=== PATIENT | female | born 1935 | race Caucasian/White ===

== ENCOUNTER → 2019-03-19 | Outpatient (CLI) | payer OTHER ==
[~2019-03-19] MED LIST: ALPRAZOLAM 0.0.25 MG PO; AMITRIPTYLINE H25 M2 PO; ASPIR 8181 M1 PO; CARDIZEM CD240 MG PO; CEFTIN500 MG PO; CELEBREX 200 M200 MG PO; COUMADIN 5 MG TA5 M1 PO; DONNATAL EXTEN1 EACH PO; HYDROCODON-ACE1 EACH; HYDROCODONE-AP1 EAC6 PO; LANOXIN 0.120.125 M1 PO; LEVOXYL112 MCG PO; LIPITOR10 MG PO; LISINOPRIL10 MG PO; METOPROLOL SUCC50 MG PO; NITROFURANTOIN100 MG PO; PLAVIX 75 MG TA75 MG PO; RANITIDINE HCL300 M1 PO; VICODIN 5-5001 EACH PO; WELLBUTRIN XL150 M1 PO; XANAX 0.25 MG0.25 MG PO; ZOLOFT 50 MG TA50 M1 PO; ZYBAN150 MG PO; levothroxine PO
== END ==
LOC: M.MRI 13:17
DX: I67.82 Cerebral ischemia (principal); R47.02 Dysphasia

== ENCOUNTER 2019-11-02 11:41 | Emergency (ER) | payer MEDICARE ==
[~2019-11-02] VITALS: Ht 165.1 cm; Wt 77.1 kg
[2019-11-02] MEDS ORDERED: LISINOPRIL2.5 MG PO (12:04)
[2019-11-02] MEDS ORDERED: DULOXETINE HCL30 MG PO (12:05)
[2019-11-02] MEDS ORDERED: FUROSEMIDE 20 M20 MG PO (12:05)
[2019-11-02] MEDS ORDERED: KLOR-CON M2020 MEQ PO (12:05)
[2019-11-02 12:37] LABS: ABSOLUTE BASOPHILS 0.1 thou/uL (0.0-0.2); ABSOLUTE EOSINOPHILS 0.1 thou/uL (0.0-0.7); ABSOLUTE LYMPHOCYTES 1.1 thou/uL (0.8-5.3); ABSOLUTE MONOCYTES 0.8 thou/uL (0.0-1.2); ABSOLUTE NEUTROPHILS 7.6 thou/uL (1.6-8.1); BASOPHILS 0.6 %; EOSINOPHILS 1.2 %; HEMATOCRIT 38.2 % (37.0-47.0); HEMOGLOBIN 12.9 gm/dL (12.0-15.0); LYMPHOCYTES 11.5 %; MCH 33.4 pg (26.0-34.0); MCHC 33.7 g/dL (28.0-37.0); MONOCYTES 8.6 %; MPV 7.4 fl. (7.2-11.1); NUCLEATED RBCS 0 /100WBC; PLATELET COUNT* 291 thou/uL (150-400); POLYS 78.1 %; RBC 3.86 mil/uL (4.20-5.00); RDW-CV 14.6 % (10.5-14.5); WBC 9.7 thou/uL (4.0-11.0)
[2019-11-02 12:49] LABS: CALCIUM 8.1 mg/dL (8.5-10.1); POTASSIUM 4.2 mmol/L (3.5-5.1)
[2019-11-02 12:56] LABS: INFLUENZA A ANTIGEN Negative (Negative); INFLUENZA B ANTIGEN Negative (Negative)
[2019-11-02 13:01] LABS: ALBUMIN 2.8 g/dL (3.4-5.0); TOTAL BILIRUBIN 0.5 mg/dL (<0.1-1.0); TOTAL PROTEIN 7.3 g/dL (6.4-8.2)
[2019-11-02] MEDS ORDERED: CEFDINIR300 MG PO (13:12)
[2019-11-02] MEDS ORDERED: MEDROLDOSEPACK PO (13:12)
[2019-11-02] MEDS ORDERED: PROMETHAZINE-C473 ML PO (13:24)
[2019-11-02 14:52] VITALS: BP 108/72
== END 2019-11-02 14:54 | disposition home or self-care (01) ==
LOC: M.ERS 11:41
PROVIDERS: Personal Emergency Response Attendant
DX: J18.8 Other pneumonia, unspecified organism (principal); I10 Essential (primary) hypertension; I48.91 Unspecified atrial fibrillation; E03.9 Hypothyroidism, unspecified; Z88.1 Allergy status to other antibiotic agents; Z88.8 Allergy status to other drugs, medicaments and biological substances; Z86.73 Personal history of transient ischemic attack (TIA), and cerebral infarction without residual deficits; Z87.440 Personal history of urinary (tract) infections; Z86.2 Personal history of diseases of the blood and blood-forming organs and certain disorders involving the immune mechanism; Z90.710 Acquired absence of both cervix and uterus; Z90.89 Acquired absence of other organs